=== PATIENT | female | born 1970 | race American Indian/Alaskan Native ===

== ENCOUNTER 2017-12-26 08:14 | Emergency (ER) | payer BC | END 2017-12-26 09:30 | disposition left against medical advice (07) | LOC: ED 08:14 | DX: R07.0 Pain in throat (principal); Z53.21 Procedure and treatment not carried out due to patient leaving prior to being seen by health care provider ==

== ENCOUNTER 2018-07-19 12:47 | Outpatient (CLI) | payer BC ==
--- NOTE | 2018-07-19 16:31 | Mammography Report ---
BILATERAL DIGITAL SCREENING MAMMOGRAM with CAD: 07/19/18 12:47:00 CLINICAL: Routine screening. COMPARISON:None available. FINDINGS: The breasts are heterogeneously dense, which may obscure small masses. No mass, architectural distortion or suspicious calcifications. IMPRESSION: No mammographic evidence of malignancy. BI-RADS CATEGORY: 1 - - Negative RECOMMENDATION: Routine mammographic screening in one year. COMMENT: Patient follow-up letters are generated by our [employer] application.
== END 2018-07-19 12:48 | disposition home or self-care (01) ==
LOC: MAMMO 12:47
PROVIDERS: ATTEND Obstetrics & Gynecology Gynecology
DX: Z12.31 Encounter for screening mammogram for malignant neoplasm of breast (principal); K21.9 Gastro-esophageal reflux disease without esophagitis
CPT/HCPCS: 77067

== ENCOUNTER 2019-07-09 07:59 | Inpatient (IN) | payer BC ==
[2019-07-09 08:28] LABS: Basophils % (Auto) 0.4 % (0.0-1.8); Eosinophils # (Auto) 0.1 K/mm3 (0.0-0.4); Eosinophils % (Auto) 1.1 % (0.0-4.3); Hematocrit 36.6 % (30.3-42.9); Lymphocytes # (Auto) 1.9 K/mm3 (1.2-5.4); Lymphocytes % (Auto) 33.8 % (13.4-35.0); Mean Corpuscular HGB Conc 33 % (30-34); Mean Corpuscular Volume 84 fl (79-97); Monocytes # (Auto) 0.5 K/mm3 (0.0-0.8); Monocytes % (Auto) 8.1 % (0.0-7.3); Platelet Count 243 K/mm3 (140-440); Red Blood Count 4.36 M/mm3 (3.65-5.03); Red Cell Distribution Width 16.8 % (13.2-15.2)
[2019-07-09 08:42] LABS: Alanine Aminotransferase 29 units/L (7-56); Albumin 3.9 g/dL (3.9-5); BUN/Creatinine Ratio 26; Blood Urea Nitrogen 13 mg/dL (7-17); Calcium 8.8 mg/dL (8.4-10.2); Hemolysis Index 4
[2019-07-09 08:57] LABS: Bilirubin,Urine NEG (Negative); Blood,Urine NEG (Negative); Color,Urine Yellow (Yellow); Mucus,Urine FEW /HPF; Protein,Urine <15 mg/dL mg/dL (Negative)
[2019-07-09] MEDS ORDERED: NACL 0.9% 1000 ML 1,000 ML IV ONE (09:28)
[2019-07-09] MEDS ORDERED: ZOFRAN IV ONE (09:28)
[2019-07-09] MEDS ORDERED: MORPHINE IV ONE ×2 (09:28→12:49)
[2019-07-09] MEDS ORDERED: ZOFRAN ONE (09:40)
[2019-07-09] MEDS ORDERED: MORPHINE ONE (09:40)
[2019-07-09] MEDS ORDERED: NACL 0.9% 1000 ML 1,000 ML ONE (09:41)
--- NOTE | 2019-07-09 09:46 | Emergency Department Report ---
ED Abdominal Pain HPI - General Chief Complaint: Abdominal Pain Stated Complaint: HEAD/(L) SIDE OF STOMACH PAIN Time Seen by Provider: 07/09/19 08:55 Source: patient Mode of arrival: Ambulatory Limitations: No Limitations - History of Present Illness Initial Comments: This is a 48-year-old female nontoxic, well nourished in appearance, no acute signs of distress presents to the ED with c/o of nausea and abdominal pain 2 day. Patient denies any vomiting. Patient describes abdominal pain as cramping and aching with level of 8/10 to left lower abdominal area. Patient denies chest pain, short of breath, fever, chills, headache, stiff neck, numbne ss or tingling. Patient denies any diarrhea or constipation. Patient denies any recent travels. Patient denies any allergies. HX of gastric bypass. MD Complaint: abdominal pain -: days(s) (1) Location: [facility] Radiation: none Migration to: no migration Severity: mild Severity scale (0 -10): 8 Quality: cramping, aching Consistency: constant Improves With: nothing Worsens With: nothing Associated Symptoms: nausea. denies: vomiting, diarrhea, fever, chills, constipation, dysuria, hematemesis, hematochezia, melena, hematuria, anorexia, syncope - Related Data Home Medications Medication Instructions Recorded Confirmed Last Taken Esomeprazole Magnesium [Nexium] 06/27/14 06/27/14 Unknown Previous Rx's Medication Instructions Recorded Last Taken Type Dicyclomine [Bentyl] 20 mg PO QID PRN #20 tablet 06/27/14 Unknown Rx Omeprazole [Prilosec] 40 mg PO BID #40 capsule. 06/27/14 Unknown Rx Cyclobenzaprine [Flexeril 10mg] 10 mg PO TID PRN #20 tablet 04/08/15 Unknown Rx HYDROcodone/ACETAMINOPHEN [Marlin 1 each PO TID #14 tablet 04/08/15 Unknown Rx 7.5-325 mg TAB] Ibuprofen [Motrin] 800 mg PO Q8H PRN #30 tablet 04/08/15 Unknown Rx traMADol [Ultram] 50 mg PO Q6HR PRN #10 tablet 11/04/16 Unknown Rx Allergies Allergy/AdvReac Type Severity Reaction Status Date / Time No Known Allergies Allergy Unverified 06/27/14 18:22 ED Review of Systems ROS: Stated complaint: HEAD/(L) SIDE OF STOMACH PAIN Other details as noted in HPI Constitutional: denies: chills, fever Eyes: denies: eye pain, eye discharge, vision change ENT: denies: ear pain, throat pain Respiratory: denies: cough, shortness of breath, wheezing Cardiovascular: denies: chest pain, palpitations Endocrine: no symptoms reported Gastrointestinal: abdominal pain, nausea. denies: vomiting, diarrhea Genitourinary: denies: urgency, dysuria, discharge Musculoskeletal: denies: back pain, joint swelling, arthralgia Skin: denies: rash, lesions Neurological: denies: headache, weakness, paresthesias Psychiatric: denies: anxiety, depression Hematological/Lymphatic: denies: easy bleeding, easy bruising ED Past Medical Hx - Past Medical History Previous Medical History?: Yes Hx GERD: Yes Additional medical history: reflux, indigestion - Surgical History Past Surgical History?: Yes Additional Surgical History: LAP BAND AND REMOVAL - Social History Smoking Status: Never Smoker Substance Use Type: None - Medications Home Medications: Home Medications Medication Instructions Recorded Confirmed Last Taken Type Dicyclomine [Bentyl] 20 mg PO QID PRN #20 tablet 06/27/14 Unknown Rx Esomeprazole Magnesium [Nexium] 06/27/14 06/27/14 Unknown History Omeprazole [Prilosec] 40 mg PO BID #40 capsule. 06/27/14 Unknown Rx Cyclobenzaprine [Flexeril 10mg] 10 mg PO TID PRN #20 tablet 04/08/15 Unknown Rx HYDROcodone/ACETAMINOPHEN [Marlin 1 each PO TID #14 tablet 04/08/15 Unknown Rx 7.5-325 mg TAB] Ibuprofen [Motrin] 800 mg PO Q8H PRN #30 tablet 04/08/15 Unknown Rx traMADol [Ultram] 50 mg PO Q6HR PRN #10 tablet 11/04/16 Unknown Rx ED Physical Exam - General Limitations: No Limitations General appearance: alert, in no apparent distress - Head Head exam: Present: atraumatic, normocephalic - Neck Neck exam: Present: normal inspection, full ROM - GI/Abdominal GI/Abdominal exam: Present: soft, tenderness (LLQ), normal bowel sounds. Absent: distended, guarding, rebound, rigid, diminished bowel sounds - Expanded GI/Abdominal Exam Expanded GI/Abdominal exam: Absent: psoas sign, Sim's sign, Rovsing's sign, tenderness at Mcburney's Point, ascites - Extremities Exam Extremities exam: Present: normal inspection, full ROM - Back Exam Back exam: Present: normal inspection, full ROM. Absent: tenderness, CVA tenderness (R), CVA tenderness (L), muscle spasm, paraspinal tenderness, vertebral tenderness, rash noted - Neurological Exam Neurological exam: Present: alert, oriented X3, normal gait - Psychiatric Psychiatric exam: Present: normal affect, normal mood - Skin Skin exam: Present: warm, dry, intact, normal color. Absent: rash ED Course Vital Signs 07/09/19 08:08 Temperature 99.0 F Pulse Rate 99 H Respiratory 19 Rate Blood Pressure 127/84 [Left] O2 Sat by Pulse 98 Oximetry - Reevaluation(s) Reevaluation #1: 07/09/19 09:46 Patient is speaking in full sentences with no signs of distress noted. - Consultations Consultation #1: 07/09/19 13:28 Patient has been consulted with Dr. Lucas (general surgeon) about patient history, physical exam, and labs/CT results and accepts patient to services. ED Medical Decision Making - Lab Data Result diagrams: 07/09/19 08:15 07/09/19 08:15 - Medical Decision Making This is a 48-year-old female that presents with small bowel intussusception. Patient is stable and was examined by me. A CT scan with contrast IV has been obtained and dictated by radiologist. Patient was consulted with Dr. Lucas and accepted by Dr. Levin. Patient placed on nothing by mouth. Dr. Engle was instructed about a small bowel barium swallow test be performed in the morning. At time of admission, the patient does not seem toxic or ill in appearance. No acute signs of distress noted. Patient agrees to admission treatment plan of care. No further questions noted by the patient. Critical care attestation.: If time is entered above; I have spent that time in minutes in the direct care of this critically ill patient, excluding procedure time. ED Disposition Clinical Impression: Small bowel intussusception Disposition: OP ADMIT IP TO THIS HOSP Is pt being admited?: Yes Condition: Stable
[2019-07-09 10:45] LABS: HCG Qualitative,Urine Negative (Negative)
--- NOTE | 2019-07-09 12:27 | Cat Scan Report ---
CT ABDOMEN AND PELVIS WITH CONTRAST HISTORY: Left abdominal pain and swelling for one day, constipation COMPARISON: None at this facility TECHNIQUE: Axial CT images were obtained through the abdomen and pelvis after 100 cc of Omnipaque 300 intravenously. Sagittal and coronal reformatted images. All CT scans at this location are performed using CT dose reduction for ALARA by means of automated exposure control. FINDINGS: CT ABDOMEN: Lung Bases: Clear. Liver: No significant abnormality. Biliary: No significant abnormality. Spleen: No significant abnormality. Unenlarged. Pancreas: No significant abnormality. Adrenals: No significant abnormality. Kidneys: No significant abnormality. Lymphatics: No lymphadenopathy. Vasculature: No significant abnormality. Bowel/Peritoneum: Surgical changes are noted in the proximal stomach and the mid small bowel in the l eft abdomen, please correlate with surgical history. There appears to be a focal small bowel intussus ception in the left abdomen which is best demonstrated on axial image 32, series 4. This does not obs truct. The remaining bowel loops are unremarkable. No evidence for free air, free fluid or pneumatosi s. Normal appendix. CT PELVIS: : The uterus is enlarged and heterogeneous containing multiple fibroids measuring up to 2-3 cm in d iameter. A 5.3 x 3.4 cm right adnexal cyst is identified which is presumably ovarian in origin. The l eft adnexa is unremarkable. There is trace pelvic ascites. Osseous Structures: No significant abnormality. Additional Findings: None IMPRESSION: Surgical changes in the stomach and mid small bowel as described. There is a focal small bowel intuss usception in the left abdomen which does not obstruct. Uterine fibroid disease. 5.3 x 3.4 cm right adnexal cyst. No acute inflammatory process is identified. Signer Name: Arvind Weaver Jr, MD Signed: 07/09/2019 12:23 PM Workstation Name: [id number]
[2019-07-09] MEDS ORDERED: DILAUDID IV PRN (20:37)
[2019-07-09] MEDS ORDERED: ZOFRAN IV PRN (21:34)
[2019-07-09] MEDS ORDERED: SODIUM CHLORIDE FLUSH SYRINGE 10 ML IV PRN (21:34)
--- NOTE | 2019-07-09 21:52 | Progress Note ---
Assessment and Plan Full consult dictated 48 y/o female c/o LLQ abd pain. Nausea but no vomiting past lap gastric band with subsequent conversion to lap gastric bypass Abd soft, non tender at present. +BS CT - possible LLQ small bowel intussusception? stable at present imp as above keep NPO for UGI with SBFT in am. will follow Initial Comments: This is a 48-year-old female nontoxic, well nourished in appearance, no acute signs of distress presents to the ED with c/o of nausea and abdominal pain 2 day. Patient denies any vomiting. Patient describes abdominal pain as cramping and aching with level of 8/10 to left lower abdominal area. Patient denies chest pain, short of breath, fever, chills, headache, stiff neck, numbness or tingling. Patient denies any diarrhea or constipation. Patient denies any recent travels. Patient denies any allergies. HX of gastric bypass. MD Complaint: abdominal pain -: days(s) (1) Location: [facility] Radiation: none Migration to: no migration Severity: mild Severity scale (0 -10): 8 Quality: cramping, aching Consistency: constant Improves With: nothing Worsens With: nothing Associated Symptoms: nausea. denies: vomiting, diarrhea, fever, chills, constipation, dysuria, hematemesis, hematochezia, melena, hematuria, anorexia, syncope Selected Entries 07/09/19 07/09/19 18:00 21:21 Temperature 98.1 F Pulse Rate [ 76 Left Brachial] Respiratory 18 Rate Blood Pressure 109/70 [Left] Laboratory Tests 07/09/19 07/09/19 08:15 08:15 WBC 5.7 Hgb 12.0 Hct 36.6 Total Bilirubin 0.60 AST 25 ALT 29 Alkaline Phosphatase 45 Objective Vital Signs - 12hr 07/09/19 07/09/19 07/09/19 16:14 16:40 18:00 Temperature 98.5 F 97.0 F L Pulse Rate 69 68 Pulse Rate [ 76 Left Brachial] Respiratory 16 20 20 Rate Blood Pressure 109/77 Blood Pressure 105/69 [Left] O2 Sat by Pulse 99 95 97 Oximetry 07/09/19 21:21 Temperature 98.1 F Pulse Rate 72 Pulse Rate [ Left Brachial] Respiratory 18 Rate Blood Pressure Blood Pressure 109/70 [Left] O2 Sat by Pulse 92 Oximetry - Labs 07/09/19 08:15 07/09/19 08:15 Diabetes panel 07/09/19 Range/Units 08:15 Sodium 138 (137-145) mmol/L Potassium 3.9 (3.6-5.0) mmol/L Chloride 107.2 H (98-107) mmol/L Carbon Dioxide 20 L (22-30) mmol/L BUN 13 (7-17) mg/dL Creatinine 0.5 L (0.7-1.2) mg/dL Glucose 92 (65-100) mg/dL Calcium 8.8 (8.4-10.2) mg/dL AST 25 (5-40) units/L ALT 29 (7-56) units/L Alkaline Phosphatase 45 (35-129) units/L Total Protein 6.7 (6.3-8.2) g/dL Albumin 3.9 (3.9-5) g/dL Calcium panel 07/09/19 Range/Units 08:15 Calcium 8.8 (8.4-10.2) mg/dL Albumin 3.9 (3.9-5) g/dL Pituitary panel 07/09/19 Range/Units 08:15 Sodium 138 (137-145) mmol/L Potassium 3.9 (3.6-5.0) mmol/L Chloride 107.2 H (98-107) mmol/L Carbon Dioxide 20 L (22-30) mmol/L BUN 13 (7-17) mg/dL Creatinine 0.5 L (0.7-1.2) mg/dL Glucose 92 (65-100) mg/dL Calcium 8.8 (8.4-10.2) mg/dL Adrenal panel 07/09/19 Range/Units 08:15 Sodium 138 (137-145) mmol/L Potassium 3.9 (3.6-5.0) mmol/L Chloride 107.2 H (98-107) mmol/L Carbon Dioxide 20 L (22-30) mmol/L BUN 13 (7-17) mg/dL Creatinine 0.5 L (0.7-1.2) mg/dL Glucose 92 (65-100) mg/dL Calcium 8.8 (8.4-10.2) mg/dL Total Bilirubin 0.60 (0.1-1.2) mg/dL AST 25 (5-40) units/L ALT 29 (7-56) units/L Alkaline Phosphatase 45 (35-129) units/L Total Protein 6.7 (6.3-8.2) g/dL Albumin 3.9 (3.9-5) g/dL
[2019-07-09] MEDS: PEPCID IV SCH (23:14)
[2019-07-09] MEDS: SODIUM CHLORIDE FLUSH SYRINGE 10 ML IV SCH (23:14)
[2019-07-09] MEDS: REGLAN IV PRN (23:28)
[2019-07-09] MEDS: MORPHINE IV PRN (23:35)
[2019-07-09] MEDS ORDERED: BENADRYL IV ONE (23:38)
[2019-07-10] MEDS: NACL 0.9% 1000 ML 1,000 ML IV SCH ×3 (01:20→18:00)
--- NOTE | 2019-07-10 02:29 | Event Note ---
Date: 07/09/19 See H/p in reports Intusussception SBO
--- NOTE | 2019-07-10 02:58 | History and Physical Report ---
CHIEF COMPLAINT: Abdominal pain for 2 days. HISTORY OF PRESENT ILLNESS: A 48-year-old female with no significant past medical history except for GERD, comes in for left lower quadrant and left upper quadrant pain for 2 days. The patient's pain is severe and crampy. Pain is about 8 on a scale of 1-10. The patient had similar episodes in the last 3-4 years. The patient attributes it to small bowel obstruction and intussusception. No vomiting. Did not pass any gas. The patient has a history of gastric bypass. Pain is sharp and intermittent, is 8 on a scale of 1-10. PAST MEDICAL HISTORY: Significant for GERD and small bowel obstruction and intussusception. PAST SURGICAL HISTORY: Lap band removal. SOCIAL HISTORY: Does not smoke. FAMILY HISTORY: Hypertension. CURRENT MEDICATIONS: Prilosec 40 mg twice a day. Tramadol 50 mg q. 6 p.r.n. in the past. REVIEW OF SYSTEMS: Significant for left lower quadrant and left upper quadrant pain, sharp in nature, 8 on a scale of 1-10, intermittent in nature. No diarrhea, no vomiting. PHYSICAL EXAMINATION: GENERAL: Middle-aged female, cooperative during examination, the patient in distress secondary to pain. VITAL SIGNS: Temperature is 98.5, pulse is 69, respirations are 16, blood pressure 109/77, O2 sats are 99%. HEENT: Unremarkable. Pupils equal and reactive. NECK: Supple, no lymphadenopathy, no thyromegaly. LUNGS: Clear to auscultation and percussion. Good air entry. ABDOMEN: Soft, tender in the left lower quadrant and left upper quadrant. No guarding. No rigidity. Bowel sounds are decreased. Hernial orifices are normal. EXTREMITIES: Good pedal pulses. No pedal edema. CENTRAL NERVOUS SYSTEM: Alert and oriented x 4. Nonfocal exam. SKIN: Normal. LABORATORY DATA: White count is 5700, H and H are 12 and 36.6, platelet count is 243,000. Electrolytes are normal. Bicarbonate is slightly low, 20. Urine is normal. Abdominal CAT scan shows surgical changes in the stomach and mid small bowel. Small bowel intussusception in the left abdomen, which does not obstruct. Uterine fibroids present. Right adnexal cyst. ASSESSMENT AND PLAN: 1. Acute abdominal pain secondary to intussusception, conservative management at present. Small bowel follow through barium series in the morning to reveal intussusception. 2. Intussusception, small bowel series in the morning with barium for relief of intussusception. If not, direct surgical intervention. Surgery consulted. 3. Gastroesophageal reflux disease. Continue on Prilosec. 4. Deep venous thrombosis prophylaxis, Lovenox 40 mg subcutaneous daily. JOB# [id number] VSM/NTS
[2019-07-10] MEDS: MORPHINE IV PRN ×5 (04:15→21:13)
[2019-07-10 05:47] LABS: Basophils % (Auto) 0.3 % (0.0-1.8); Eosinophils # (Auto) 0.1 K/mm3 (0.0-0.4); Eosinophils % (Auto) 1.8 % (0.0-4.3); Hematocrit 31.5 % (30.3-42.9); Hemoglobin 10.3 gm/dl (10.1-14.3); Lymphocytes # (Auto) 1.9 K/mm3 (1.2-5.4); Lymphocytes % (Auto) 52.4 % (13.4-35.0); Mean Corpuscular HGB Conc 33 % (30-34); Mean Corpuscular Volume 85 fl (79-97); Monocytes # (Auto) 0.3 K/mm3 (0.0-0.8); Platelet Count 204 K/mm3 (140-440); Red Blood Count 3.73 M/mm3 (3.65-5.03)
[2019-07-10 06:15] LABS: Alanine Aminotransferase 21 units/L (7-56); Albumin 3.1 g/dL (3.9-5); BUN/Creatinine Ratio 20; Blood Urea Nitrogen 8 mg/dL (7-17); Calcium 7.8 mg/dL (8.4-10.2); Hemolysis Index 7
--- NOTE | 2019-07-10 11:20 | Fluoroscopy Report ---
SMALL BOWEL FOLLOW-THROUGH HISTORY: Intussusception, abdominal pain. TECHNIQUE: Single contrast barium technique utilized to evaluate the small bowel. FINDINGS: Small bowel transit time was 30 minutes which is normal. No fold thickening, mass, mass e ffect, stenosis, or obstruction. The terminal ileum is normal in appearance. No intussusception was identified as noted on recent CT abdomen and pelvis. IMPRESSION: Unremarkable exam. FLUOROSCOPIC TIME: 0.3 minutes NUMBER OF FLUOROSCOPIC IMAGES: 4 Signer Name: Arvind Weaver Jr, MD Signed: 07/10/2019 11:16 AM Workstation Name: [id number]
[2019-07-10] MEDS: SODIUM CHLORIDE FLUSH SYRINGE 10 ML IV SCH ×2 (11:57→21:18)
[2019-07-10] MEDS: PEPCID IV SCH ×2 (11:57→21:12)
--- NOTE | 2019-07-10 12:53 | Progress Note ---
Assessment and Plan Pt status quo. still c/o non specific LLQ abd pain. Abd soft at present SBFT - unremarkable persistent, non specific lower abd pain. Pt states she's had this symptomatology ever since her gastric bypass surg.. rec consultation with Dr. Ugalde bariatric surgeon consider beginning trial of po cl liq if cleared by Dr. Ugalde Selected Entries 07/10/19 08:41 Temperature 98 F Pulse Rate 66 Respiratory 18 Rate Blood Pressure 111/73 [Left] Laboratory Tests 07/09/19 07/10/19 07/10/19 08:15 05:12 05:12 WBC 3.6 L Hgb 12.0 10.3 Hct 36.6 31.5 Potassium 3.5 L Objective Vital Signs - 12hr 07/10/19 07/10/19 07/10/19 02:23 04:02 08:41 Temperature 98.0 F 98 F Pulse Rate 67 66 Respiratory 20 18 18 Rate Blood Pressure 96/49 Blood Pressure 111/73 [Left] O2 Sat by Pulse 98 97 98 Oximetry - Labs 07/10/19 05:12 07/10/19 05:12 Diabetes panel 07/10/19 07/10/19 Range/Units 05:12 05:12 Sodium 142 (137-145) mmol/L Potassium 3.5 L (3.6-5.0) mmol/L Chloride 109.4 H (98-107) mmol/L Carbon Dioxide 22 (22-30) mmol/L BUN 8 (7-17) mg/dL Creatinine 0.4 L (0.7-1.2) mg/dL Glucose 82 (65-100) mg/dL Hemoglobin A1c 5.3 (4-6) % Calcium 7.8 L (8.4-10.2) mg/dL AST 19 (5-40) units/L ALT 21 (7-56) units/L Alkaline Phosphatase 38 (35-129) units/L Total Protein 5.8 L (6.3-8.2) g/dL Albumin 3.1 L (3.9-5) g/dL Calcium panel 07/10/19 Range/Units 05:12 Calcium 7.8 L (8.4-10.2) mg/dL Albumin 3.1 L (3.9-5) g/dL Pituitary panel 07/10/19 Range/Units 05:12 Sodium 142 (137-145) mmol/L Potassium 3.5 L (3.6-5.0) mmol/L Chloride 109.4 H (98-107) mmol/L Carbon Dioxide 22 (22-30) mmol/L BUN 8 (7-17) mg/dL Creatinine 0.4 L (0.7-1.2) mg/dL Glucose 82 (65-100) mg/dL Calcium 7.8 L (8.4-10.2) mg/dL Adrenal panel 07/10/19 Range/Units 05:12 Sodium 142 (137-145) mmol/L Potassium 3.5 L (3.6-5.0) mmol/L Chloride 109.4 H (98-107) mmol/L Carbon Dioxide 22 (22-30) mmol/L BUN 8 (7-17) mg/dL Creatinine 0.4 L (0.7-1.2) mg/dL Glucose 82 (65-100) mg/dL Calcium 7.8 L (8.4-10.2) mg/dL Total Bilirubin 0.50 (0.1-1.2) mg/dL AST 19 (5-40) units/L ALT 21 (7-56) units/L Alkaline Phosphatase 38 (35-129) units/L Total Protein 5.8 L (6.3-8.2) g/dL Albumin 3.1 L (3.9-5) g/dL
--- NOTE | 2019-07-10 14:05 | Consultation ---
History of Present Illness Consult date: 07/10/19 Reason for consult: abdominal pain Chief complaint: Hx of gastric bypass with intussusception seen on CT scan. - History of present illness History of present illness: 48 year old female with a hx of band converted to gastric bypass 2009. She says she has been having chronic abdominal pain on the left side since the surgery off and on. She was seen at an OSH and was told she had intussusception on CT scan. She was told to get a second opinion and followed up with the the bariatric practice that performed her surgery. The had planned to schedule her for surgical exploration. She denies n/v, she has bowel movements, but says she is tired of having the pain. She had a CT scan overnight that also showed a non- obstructing intussusception and a small bowel follow through that showed no obstruction and was otherwise normal. Past History Past Surgical History: Other (gastric band, gastric bypass) Medications and Allergies Allergies Allergy/AdvReac Type Severity Reaction Status Date / Time No Known Allergies Allergy Unverified 06/27/14 18:22 Home Medications Medication Instructions Recorded Confirmed Last Taken Type Dicyclomine [Bentyl] 20 mg PO QID PRN #20 tablet 06/27/14 07/09/19 2 Years Ago Rx ~07/09/17 Esomeprazole Magnesium [Nexium] 06/27/14 06/27/14 1 Year Ago History ~07/09/18 Omeprazole [Prilosec] 40 mg PO BID #40 capsule. 06/27/14 07/09/19 Unknown Rx Cyclobenzaprine [Flexeril 10mg] 10 mg PO TID PRN #20 tablet 04/08/15 07/09/19 2 Years Ago Rx ~07/09/17 HYDROcodone/ACETAMINOPHEN [Center 1 each PO TID #14 tablet 04/08/15 07/09/19 05/27/19 Rx 7.5-325 mg TAB] Ibuprofen [Motrin] 800 mg PO Q8H PRN #30 tablet 04/08/15 07/09/19 Unknown Rx traMADol [Ultram] 50 mg PO Q6HR PRN #10 tablet 11/04/16 07/09/19 Unknown Rx Active Meds: Active Medications Acetaminophen (Tylenol) 650 mg PO Q4H PRN PRN Reason: Pain MILD(1-3)/Fever >100.5/MAYBERRY Famotidine (Pepcid) 20 mg IV BID [facility] Last Admin: 07/10/19 11:57 Dose: 20 mg Documented by: Sodium Chloride (Nacl 0.9% 1000 Ml) 1,000 mls @ 125 mls/hr IV DIRECT [facility] Last Admin: 07/10/19 06:16 Dose: 125 mls/hr Documented by: Metoclopramide HCl (Reglan) 10 mg IV Q6H PRN PRN Reason: Nausea And Vomiting Last Admin: 07/09/19 23:28 Dose: 10 mg Documented by: Morphine Sulfate (Morphine) 2 mg IV Q3H PRN PRN Reason: Pain, Moderate (4-6) Last Admin: 07/10/19 11:57 Dose: 2 mg Documented by: Ondansetron HCl (Zofran) 4 mg IV Q8H PRN PRN Reason: Nausea And Vomiting Sodium Chloride (Sodium Chloride Flush Syringe 10 Ml) 10 ml IV BID [facility] Last Admin: 07/10/19 11:57 Dose: 10 ml Documented by: Sodium Chloride (Sodium Chloride Flush Syringe 10 Ml) 10 ml IV PRN PRN PRN Reason: LINE FLUSH Review of Systems - Constitutional no weight loss - Cardiovascular no chest pain - Respiratory no shortness of breath - Gastrointestinal abdominal pain Exam Vital Signs Temp Pulse Resp BP Pulse Ox 99.0 F 99 H 19 127/84 98 07/09/19 08:08 07/09/19 08:08 07/09/19 08:08 07/09/19 08:08 07/09/19 08:08 - General physical appearance Positive: well developed, well nourished, no distress - Eyes Positive: PERRL - Respiratory Positive: normal expansion, normal respiratory effort - Extremities Extremities: no ischemia - Abdomen Abdomen: Present: soft, other (obese, mild tenderness to deep palpation on the left side) Results - Labs 07/10/19 05:12 07/10/19 05:12 Abnormal lab results 07/10/19 07/10/19 Range/Units 05:12 05:12 WBC 3.6 L (4.5-11.0) K/mm3 RDW 17.0 H (13.2-15.2) % Lymph % (Auto) 52.4 H (13.4-35.0) % Mcdonough % (Auto) 8.0 H (0.0-7.3) % Seg Neutrophils % 37.5 L (40.0-70.0) % Seg Neutrophils # 1.4 L (1.8-7.7) K/mm3 Potassium 3.5 L (3.6-5.0) mmol/L Chloride 109.4 H (98-107) mmol/L Creatinine 0.4 L (0.7-1.2) mg/dL Calcium 7.8 L (8.4-10.2) mg/dL Total Protein 5.8 L (6.3-8.2) g/dL Albumin 3.1 L (3.9-5) g/dL Diabetes panel 07/10/19 07/10/19 Range/Units 05:12 05:12 Sodium 142 (137-145) mmol/L Potassium 3.5 L (3.6-5.0) mmol/L Chloride 109.4 H (98-107) mmol/L Carbon Dioxide 22 (22-30) mmol/L BUN 8 (7-17) mg/dL Creatinine 0.4 L (0.7-1.2) mg/dL Glucose 82 (65-100) mg/dL Hemoglobin A1c 5.3 (4-6) % Calcium 7.8 L (8.4-10.2) mg/dL AST 19 (5-40) units/L ALT 21 (7-56) units/L Alkaline Phosphatase 38 (35-129) units/L Total Protein 5.8 L (6.3-8.2) g/dL Albumin 3.1 L (3.9-5) g/dL Calcium panel 07/10/19 Range/Units 05:12 Calcium 7.8 L (8.4-10.2) mg/dL Albumin 3.1 L (3.9-5) g/dL Pituitary panel 07/10/19 Range/Units 05:12 Sodium 142 (137-145) mmol/L Potassium 3.5 L (3.6-5.0) mmol/L Chloride 109.4 H (98-107) mmol/L Carbon Dioxide 22 (22-30) mmol/L BUN 8 (7-17) mg/dL Creatinine 0.4 L (0.7-1.2) mg/dL Glucose 82 (65-100) mg/dL Calcium 7.8 L (8.4-10.2) mg/dL Adrenal panel 07/10/19 Range/Units 05:12 Sodium 142 (137-145) mmol/L Potassium 3.5 L (3.6-5.0) mmol/L Chloride 109.4 H (98-107) mmol/L Carbon Dioxide 22 (22-30) mmol/L BUN 8 (7-17) mg/dL Creatinine 0.4 L (0.7-1.2) mg/dL Glucose 82 (65-100) mg/dL Calcium 7.8 L (8.4-10.2) mg/dL Total Bilirubin 0.50 (0.1-1.2) mg/dL AST 19 (5-40) units/L ALT 21 (7-56) units/L Alkaline Phosphatase 38 (35-129) units/L Total Protein 5.8 L (6.3-8.2) g/dL Albumin 3.1 L (3.9-5) g/dL - Imaging Abdominal x-ray: report reviewed, image reviewed (no obstructing intussusception) CT scan - abdomen: report reviewed, image reviewed CT scan - pelvis: report reviewed, image reviewed Assessment and Plan chronic abdominal pain after gastric bypass. stable, afebrile. chronic intussusception as a cause of pain a possibility scheduled for dx lap on Monday07/12/19. Can have clear liquids through tomorrow mid night. discussed with patient that if segment of bowel is not actively telescoped at time of exploration may have nothing to repair at that time and intussusception can occur again. Will also look for possible internal hernia at that time.
[2019-07-10] MEDS: TYLENOL PO PRN (14:48)
--- NOTE | 2019-07-10 16:43 | Progress Note ---
Assessment and Plan Assessment and plan: Abdominal pain due to intussusception - Dr. Ugalde evaluated and will do surgery on monday History of gastric bypass GERD - Continue Prilosec DVT prophylaxis - On Lovenox Disposition - Continue inpatient care History Interval history: Patient was seen and evaluated this morning, patient did complaining some abdominal pain. Hospitalist Physical - Physical exam Narrative exam: Not in cardiopulmonary distress. The patient appeared well nourished and normally developed. Vital signs as documented. Head exam is unremarkable. No scleral icterus . Neck is without jugular venous distension, thyromegaly, or carotid bruits. Lungs are clear to auscultation. Cardiac exam reveals regular rate and Rhythm. Abdominal exam reveals normal bowel sounds, no masses, no organomegaly and no aortic enlargement. Extremities are nonedematous and both femoral and pedal pulses are normal. 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 No focal weakness. - Constitutional Vitals: Temp Pulse Resp BP Pulse Ox 98 F 66 18 111/73 98 07/10/19 08:41 07/10/19 08:41 07/10/19 08:41 07/10/19 08:41 07/10/19 08:41 Results - Labs CBC & Chem 7: 07/10/19 05:12 07/10/19 05:12 Labs: Laboratory Last Values WBC 3.6 K/mm3 (4.5-11.0) L 07/10/19 05:12 RBC 3.73 M/mm3 (3.65-5.03) 07/10/19 05:12 Hgb 10.3 gm/dl (10.1-14.3) 07/10/19 05:12 Hct 31.5 % (30.3-42.9) 07/10/19 05:12 MCV 85 fl (79-97) 07/10/19 05:12 MCH 28 pg (28-32) 07/10/19 05:12 MCHC 33 % (30-34) 07/10/19 05:12 RDW 17.0 % (13.2-15.2) H 07/10/19 05:12 Plt Count 204 K/mm3 (140-440) 07/10/19 05:12 Lymph % (Auto) 52.4 % (13.4-35.0) H 07/10/19 05:12 [place] % (Auto) 8.0 % (0.0-7.3) H 07/10/19 05:12 Eos % (Auto) 1.8 % (0.0-4.3) 07/10/19 05:12 Baso % (Auto) 0.3 % (0.0-1.8) 07/10/19 05:12 Lymph # 1.9 K/mm3 (1.2-5.4) 07/10/19 05:12 [place] # 0.3 K/mm3 (0.0-0.8) 07/10/19 05:12 Eos # 0.1 K/mm3 (0.0-0.4) 07/10/19 05:12 Baso # 0.0 K/mm3 (0.0-0.1) 07/10/19 05:12 Seg Neutrophils % 37.5 % (40.0-70.0) L 07/10/19 05:12 Seg Neutrophils # 1.4 K/mm3 (1.8-7.7) L 07/10/19 05:12 Sodium 142 mmol/L (137-145) 07/10/19 05:12 Potassium 3.5 mmol/L (3.6-5.0) L 07/10/19 05:12 Chloride 109.4 mmol/L (98-107) H 07/10/19 05:12 Carbon Dioxide 22 mmol/L (22-30) 07/10/19 05:12 14 mmol/L 07/10/19 05:12 BUN 8 mg/dL (7-17) 07/10/19 05:12 0.4 mg/dL (0.7-1.2) L 07/10/19 05:12 Estimated GFR > 60 ml/min 07/10/19 05:12 20 % 07/10/19 05:12 Glucose 82 mg/dL (65-100) 07/10/19 05:12 5.3 % (4-6) 07/10/19 05:12 Calcium 7.8 mg/dL (8.4-10.2) L 07/10/19 05:12 0.50 mg/dL (0.1-1.2) 07/10/19 05:12 AST 19 units/L (5-40) 07/10/19 05:12 ALT 21 units/L (7-56) 07/10/19 05:12 38 units/L (35-129) 07/10/19 05:12 5.8 g/dL (6.3-8.2) L 07/10/19 05:12 3.1 g/dL (3.9-5) L 07/10/19 05:12 1.1 % 07/10/19 05:12 Yellow (Yellow) 07/09/19 08:35 Clear (Clear) 07/09/19 08:35 6.0 (5.0-7.0) 07/09/19 08:35 Ur Specific [place] 1.017 (1.003-1.030) 07/09/19 08:35 <15 mg/dl mg/dL (Negative) 07/09/19 08:35 Neg mg/dL (Negative) 07/09/19 08:35 Neg mg/dL (Negative) 07/09/19 08:35 Neg (Negative) 07/09/19 08:35 Neg (Negative) 07/09/19 08:35 Neg (Negative) 07/09/19 08:35 2.0 mg/dL (<2.0) 07/09/19 08:35 Ur Leukocyte Esterase Tr (Negative) 07/09/19 08:35 1.0 /HPF (0.0-6.0) 07/09/19 08:35 3.0 /HPF (0.0-6.0) 07/09/19 08:35 U Epithel Cells (Auto) 1.0 /HPF (0-13.0) 07/09/19 08:35 Few /HPF 07/09/19 08:35 Urine HCG, Qual Negative (Negative) 07/09/19 10:19 Active Medications - Current Medications Current Medications: Generic Name Dose Route Start Last Admin Trade Name Freq PRN Reason Stop Dose Admin Acetaminophen 650 mg 07/09/19 21:34 07/10/19 14:48 Tylenol PO 650 mg Q4H PRN Administration Pain MILD(1-3)/Fever >100.5/MAYBERRY Famotidine 20 mg 07/09/19 22:00 07/10/19 11:57 Pepcid IV 20 mg BID MINDY Administration Sodium Chloride 1,000 mls @ 125 mls/hr 07/09/19 22:00 07/10/19 06:16 Nacl 0.9% 1000 Ml IV 125 mls/hr DIRECT MINDY Administration Metoclopramide HCl 10 mg 07/09/19 21:34 07/09/19 23:28 Reglan IV 10 mg Q6H PRN Administration Nausea And Vomiting Morphine Sulfate 2 mg 07/09/19 23:14 07/10/19 11:57 Morphine IV 2 mg Q3H PRN Administration Pain, Moderate (4-6) Ondansetron HCl 4 mg 07/09/19 21:34 Zofran IV Q8H PRN Nausea And Vomiting Sodium Chloride 10 ml 07/09/19 22:00 07/10/19 11:57 Sodium Chloride Flush Syringe 10 Ml IV 10 ml BID MINDY Administration Sodium Chloride 10 ml 07/09/19 21:34 Sodium Chloride Flush Syringe 10 Ml IV PRN PRN LINE FLUSH
--- NOTE | 2019-07-10 18:30 | Consultation ---
REASON FOR CONSULTATION: Rule out intussusception. HISTORY OF PRESENT ILLNESS: The patient is a 48-year-old female who was admitted through the Emergency Room today with a chief complaint of left lower quadrant abdominal pain. She states she has had some nausea, but no vomiting. It is noted that the patient states she was seen in [facility] approximately 3 weeks ago with similar symptoms, although was never admitted. Apparently, she improved on her own, but over the last day or so her left lower quadrant abdominal pain has recurred. PAST MEDICAL HISTORY: Negative. PAST SURGICAL HISTORY: Status post laparoscopic gastric banding and then subsequent conversion to laparoscopic gastric bypass. Also, laparoscopic ovarian cystectomy. ALLERGIES: No known allergies. MEDICATIONS: Include stool softener, multivitamins and Ambien for sleep. FAMILY HISTORY: Negative. SOCIAL HISTORY: Drinks occasional wine. Denies any smoking. PHYSICAL EXAMINATION: GENERAL: At this time reveals the patient to be awake, alert, cooperative. Mild discomfort, but no acute distress. VITAL SIGNS: Show her to be afebrile with a temperature of 98, blood pressure is 109/70, pulse is 72, respirations of 18. ABDOMEN: Examination of the abdomen reveals it to be soft. There is very mild left lower quadrant tenderness noted at this time, but no guarding or rebound. Bowel sounds are present. There are no signs of any abdominal distention. LABORATORY DATA: Lab work at present includes a CBC, which shows a white count of 5.7, H and H is 12 and 36.6. Electrolytes are all within normal limits. Glucose is normal at 92. LFTs are all normal including a total bilirubin of 0.6, AST is 25, ALT is 29, alkaline phosphatase 45. A CT scan of the abdomen has been performed, which reveals possible small bowel intussusception in the area of the left abdomen. There are no signs of any proximal bowel distention or obstruction. No evidence of any free air or free fluid. Appendix is normal. IMPRESSION: 1. At this time is that of a 48-year-old female status post previous gastric lap band and subsequent gastric bypass. 2. Rule out possible small bowel intussusception. The patient is clinically stable. Her abdomen is soft and currently nontender. There is no evidence of any obstructive signs. Recommendation at this time is to keep the patient n.p.o. We will order upper GI with small bowel follow through with p.o. barium in the morning to confirm if there is indeed an intussusception in the area. Many times a barium itself is not only diagnostic, but therapeutic. I will follow with you. JOB# [id number] FP/NTS
[2019-07-10] MEDS: RESTORIL PO PRN (23:28)
[2019-07-11] MEDS: TYLENOL PO PRN ×2 (02:24→06:51)
[2019-07-11] MEDS: NACL 0.9% 1000 ML 1,000 ML IV SCH ×3 (02:24→20:18)
[2019-07-11] MEDS: REGLAN IV PRN (02:25)
[2019-07-11] MEDS: MORPHINE IV PRN ×4 (02:42→20:06)
[2019-07-11 06:46] LABS: Basophils % (Auto) 0.4 % (0.0-1.8); Eosinophils # (Auto) 0.1 K/mm3 (0.0-0.4); Eosinophils % (Auto) 1.7 % (0.0-4.3); Hematocrit 32.1 % (30.3-42.9); Hemoglobin 10.5 gm/dl (10.1-14.3); Lymphocytes # (Auto) 1.7 K/mm3 (1.2-5.4); Lymphocytes % (Auto) 45.2 % (13.4-35.0); Mean Corpuscular HGB Conc 33 % (30-34); Mean Corpuscular Volume 84 fl (79-97); Monocytes # (Auto) 0.4 K/mm3 (0.0-0.8); Monocytes % (Auto) 9.6 % (0.0-7.3); Platelet Count 205 K/mm3 (140-440); Red Blood Count 3.81 M/mm3 (3.65-5.03); Red Cell Distribution Width 16.8 % (13.2-15.2)
[2019-07-11] MEDS ORDERED: ZOFRAN IV PRN (07:42)
--- NOTE | 2019-07-11 08:31 | Progress Note ---
Assessment and Plan chronic abdominal pain s/p gastric bypass with possible non obstructing intussusception. stable, afebrile scheduled for dx lap tomorrow Subjective Date of service: 07/11/19 Patient Reports: Positive: no new complaints (tolerated liquid diet, passing flatus) Objective Vital Signs - 12hr 07/10/19 07/11/19 07/11/19 20:46 01:17 05:18 Temperature 98.1 F 97.9 F 98.2 F Pulse Rate 72 67 74 Respiratory 18 17 17 Rate Blood Pressure 116/72 116/74 Blood Pressure 114/73 [Left] O2 Sat by Pulse 97 96 96 Oximetry 07/11/19 08:13 Temperature 98.0 F Pulse Rate 68 Respiratory 18 Rate Blood Pressure 129/73 Blood Pressure [Left] O2 Sat by Pulse 96 Oximetry - General physical appearance well developed, well nourished, no distress - Abdomen soft, not rebound, not guarding, other (obese, tender to deep palpation on the left side) - Labs 07/11/19 05:45 07/10/19 05:12
[2019-07-11] MEDS: SODIUM CHLORIDE FLUSH SYRINGE 10 ML IV SCH (10:32)
[2019-07-11] MEDS: PEPCID IV SCH ×2 (10:32→21:22)
--- NOTE | 2019-07-11 14:03 | Progress Note ---
Assessment and Plan Assessment and plan: Abdominal pain due to intussusception - Dr. Ugalde evaluated and will do surgery on monday History of gastric bypass GERD - Continue Prilosec DVT prophylaxis - On Lovenox Disposition - Continue inpatient care History Interval history: Patient was seen and evaluated this morning, patient did complaining abdominal cramp. Hospitalist Physical - Physical exam Narrative exam: Not in cardiopulmonary distress. The patient appeared well nourished and normally developed. Vital signs as documented. Head exam is unremarkable. No scleral icterus . Neck is without jugular venous distension, thyromegaly, or carotid bruits. Lungs are clear to auscultation. Cardiac exam reveals regular rate and Rhythm. Abdominal exam reveals normal bowel sounds, no masses, no organomegaly and no aortic enlargement. Extremities are nonedematous and both femoral and pedal pulses are normal. 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 No focal weakness. - Constitutional Vitals: Temp Pulse Resp BP Pulse Ox 98.1 F 67 18 112/67 98 07/11/19 11:07 07/11/19 11:07 07/11/19 11:07 07/11/19 11:07 07/11/19 11:07 Results - Labs CBC & Chem 7: 07/11/19 05:45 07/10/19 05:12 Labs: Laboratory Last Values WBC 3.8 K/mm3 (4.5-11.0) L 07/11/19 05:45 RBC 3.81 M/mm3 (3.65-5.03) 07/11/19 05:45 Hgb 10.5 gm/dl (10.1-14.3) 07/11/19 05:45 Hct 32.1 % (30.3-42.9) 07/11/19 05:45 MCV 84 fl (79-97) 07/11/19 05:45 MCH 28 pg (28-32) 07/11/19 05:45 MCHC 33 % (30-34) 07/11/19 05:45 RDW 16.8 % (13.2-15.2) H 07/11/19 05:45 Plt Count 205 K/mm3 (140-440) 07/11/19 05:45 Lymph % (Auto) 45.2 % (13.4-35.0) H 07/11/19 05:45 [place] % (Auto) 9.6 % (0.0-7.3) H 07/11/19 05:45 Eos % (Auto) 1.7 % (0.0-4.3) 07/11/19 05:45 Baso % (Auto) 0.4 % (0.0-1.8) 07/11/19 05:45 Lymph # 1.7 K/mm3 (1.2-5.4) 07/11/19 05:45 [place] # 0.4 K/mm3 (0.0-0.8) 07/11/19 05:45 Eos # 0.1 K/mm3 (0.0-0.4) 07/11/19 05:45 Baso # 0.0 K/mm3 (0.0-0.1) 07/11/19 05:45 Seg Neutrophils % 43.1 % (40.0-70.0) 07/11/19 05:45 Seg Neutrophils # 1.6 K/mm3 (1.8-7.7) L 07/11/19 05:45 Sodium 142 mmol/L (137-145) 07/10/19 05:12 Potassium 3.5 mmol/L (3.6-5.0) L 07/10/19 05:12 Chloride 109.4 mmol/L (98-107) H 07/10/19 05:12 Carbon Dioxide 22 mmol/L (22-30) 07/10/19 05:12 14 mmol/L 07/10/19 05:12 BUN 8 mg/dL (7-17) 07/10/19 05:12 0.4 mg/dL (0.7-1.2) L 07/10/19 05:12 Estimated GFR > 60 ml/min 07/10/19 05:12 20 % 07/10/19 05:12 Glucose 82 mg/dL (65-100) 07/10/19 05:12 5.3 % (4-6) 07/10/19 05:12 Calcium 7.8 mg/dL (8.4-10.2) L 07/10/19 05:12 0.50 mg/dL (0.1-1.2) 07/10/19 05:12 AST 19 units/L (5-40) 07/10/19 05:12 ALT 21 units/L (7-56) 07/10/19 05:12 38 units/L (35-129) 07/10/19 05:12 5.8 g/dL (6.3-8.2) L 07/10/19 05:12 3.1 g/dL (3.9-5) L 07/10/19 05:12 1.1 % 07/10/19 05:12 Yellow (Yellow) 07/09/19 08:35 Clear (Clear) 07/09/19 08:35 6.0 (5.0-7.0) 07/09/19 08:35 Ur Specific [place] 1.017 (1.003-1.030) 07/09/19 08:35 <15 mg/dl mg/dL (Negative) 07/09/19 08:35 Neg mg/dL (Negative) 07/09/19 08:35 Neg mg/dL (Negative) 07/09/19 08:35 Neg (Negative) 07/09/19 08:35 Neg (Negative) 07/09/19 08:35 Neg (Negative) 07/09/19 08:35 2.0 mg/dL (<2.0) 07/09/19 08:35 Ur Leukocyte Esterase Tr (Negative) 07/09/19 08:35 1.0 /HPF (0.0-6.0) 07/09/19 08:35 3.0 /HPF (0.0-6.0) 07/09/19 08:35 U Epithel Cells (Auto) 1.0 /HPF (0-13.0) 07/09/19 08:35 Few /HPF 07/09/19 08:35 Urine HCG, Qual Negative (Negative) 07/09/19 10:19 Active Medications - Current Medications Current Medications: Generic Name Dose Route Start Last Admin Trade Name Freq PRN Reason Stop Dose Admin Acetaminophen 650 mg 07/09/19 21:34 07/11/19 06:51 Tylenol PO 650 mg Q4H PRN Administration Pain MILD(1-3)/Fever >100.5/MAYBERRY Famotidine 20 mg 07/09/19 22:00 07/11/19 10:32 Pepcid IV 20 mg BID MINDY Administration Sodium Chloride 1,000 mls @ 125 mls/hr 07/09/19 22:00 07/11/19 10:32 Nacl 0.9% 1000 Ml IV 125 mls/hr DIRECT MINDY Administration Morphine Sulfate 2 mg 07/09/19 23:14 07/11/19 08:37 Morphine IV 2 mg Q3H PRN Administration Pain, Moderate (4-6) Ondansetron HCl 4 mg 07/11/19 07:42 Zofran IV Q4H PRN Nausea And Vomiting Sodium Chloride 10 ml 07/09/19 22:00 07/11/19 10:32 Sodium Chloride Flush Syringe 10 Ml IV 10 ml BID MINDY Administration Sodium Chloride 10 ml 07/09/19 21:34 Sodium Chloride Flush Syringe 10 Ml IV PRN PRN LINE FLUSH Temazepam 15 mg 07/10/19 22:40 07/10/19 23:28 Restoril PO 15 mg QHS PRN Administration Sleep
[2019-07-11] MEDS: RESTORIL PO PRN (21:28)
[2019-07-12] MEDS: SODIUM CHLORIDE FLUSH SYRINGE 10 ML IV SCH (05:05)
[2019-07-12] MEDS: MORPHINE IV PRN ×2 (05:47→13:44)
[2019-07-12] MEDS: NACL 0.9% 1000 ML 1,000 ML IV SCH (05:47)
[2019-07-12] MEDS ORDERED: DILAUDID IV PRN (08:06)
--- NOTE | 2019-07-12 08:06 | Anesthesia Consultation ---
Anesthesia Consult and Med Hx Date of service: 07/12/19 - Airway Anesthetic Teeth Evaluation: Partials ROM Head & Neck: Adequate Mental/Hyoid Distance: Adequate Mallampati Class: Class II Intubation Access Assessment: Good - Pulmonary Exam CTA: Yes - Cardiac Exam Cardiac Exam: RRR - Pre-Operative Health Status ASA Pre-Surgery Classification: ASA2 Proposed Anesthetic Plan: General - Pulmonary Hx Asthma: No COPD: No Hx Pneumonia: No - Central Nervous System Hx Psychiatric Problems: No - Gastrointestinal Hx Gastroesophageal Reflux Disease: Yes - Endocrine Hx End Stage Renal Disease: No - Other Systems Hx Cancer: No
--- NOTE | 2019-07-12 08:06 | Anesthesia Day of Surgery ---
Anesthesia Day of Surgery - Day of Surgery Patient Examined: Yes Patient H&P Reviewed: Yes Patient is NPO: Yes
[2019-07-12] MEDS ORDERED: LACTATED RINGERS 1,000 ML ONE ×2 (08:07→10:42)
[2019-07-12] MEDS: PEPCID IV SCH ×3 (08:15→22:19)
[2019-07-12] MEDS ORDERED: VERSED ONE (08:46)
[2019-07-12] MEDS ORDERED: XYLOCAINE MPF 2% ONE ×2 (08:46→08:48)
[2019-07-12] MEDS ORDERED: DIPRIVAN 10 MG/ML IV ONE (08:47)
[2019-07-12] MEDS ORDERED: SUBLIMAZE ONE (08:47)
[2019-07-12] MEDS ORDERED: ZEMURON IV ONE (08:48)
[2019-07-12] MEDS ORDERED: VERSED IV NR (09:00)
[2019-07-12] MEDS ORDERED: LACTATED RINGERS 1,000 ML IV SCH ×2 (09:00→14:15)
--- NOTE | 2019-07-12 09:26 | Progress Note ---
Assessment and Plan chronic abdominal pain 9 years after gastric bypass. CT scan shows focal non- obstructing intussusception that may be the cause. taking for dx lap today with EGD Subjective Date of service: 07/12/19 Patient Reports: Positive: no new complaints, still having pain, tolerating liquids well, flatus Objective Vital Signs - 12hr 07/11/19 07/11/19 07/12/19 22:00 23:49 04:21 Temperature 98.0 F 97.2 F L Pulse Rate 68 73 Respiratory 18 18 Rate Respiratory 17 Rate [Left Upper Abdomen] Blood Pressure 92/55 125/80 O2 Sat by Pulse 95 98 Oximetry 07/12/19 07/12/19 07/12/19 05:47 06:17 07:35 Temperature 98.5 F Pulse Rate 68 Respiratory 17 17 18 Rate Respiratory Rate [Left Upper Abdomen] Blood Pressure 139/88 O2 Sat by Pulse 100 Oximetry 07/12/19 07/12/19 07:50 08:00 Temperature 98 F 98 F Pulse Rate 60 60 Respiratory 18 18 Rate Respiratory Rate [Left Upper Abdomen] Blood Pressure 131/84 131/84 O2 Sat by Pulse 98 98 Oximetry - General physical appearance well developed, well nourished, no distress - Respiratory normal expansion, normal respiratory effort - Abdomen soft, other (obese, tender to deep palpation more on left side) - Labs 07/11/19 05:45 07/10/19 05:12
[2019-07-12] MEDS ORDERED: XYLOCAINE 1% 20 mL ONE (09:35)
[2019-07-12] MEDS ORDERED: MARCAINE-EPI 0.5%-1:200,000 INFILTRATI ONE ×2 (09:35→10:07)
[2019-07-12] MEDS ORDERED: FLAGYL 500 MG/100 ML 500 MG/100 ML BAG IV NR (09:45)
[2019-07-12] MEDS ORDERED: ANCEF/STERILE WATER 2 GM/20 ML IV NR (09:45)
[2019-07-12] MEDS ORDERED: XYLOCAINE 1% 20 mL INFILTRATI ONE (10:08)
[2019-07-12] MEDS ORDERED: NACL 0.9% IR ONE (10:08)
[2019-07-12] MEDS ORDERED: DECADRON ONE (10:40)
[2019-07-12] MEDS ORDERED: ZOFRAN ONE (10:40)
[2019-07-12] MEDS ORDERED: BLOXIVERZ ONE (10:41)
[2019-07-12] MEDS ORDERED: ROBINUL ONE (10:41)
[2019-07-12] MEDS ORDERED: MORPHINE ONE (10:56)
--- NOTE | 2019-07-12 11:16 | Operative Report ---
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 DIAGNOSTIC LAPAROSCOPY WITH REDUCTION OF SMALL BOWEL INTUSSUSCEPTION AND SMALL BOWEL PEXY 2. EGD ANESTHESIA: GETA COMPLICATIONS: NONE IMMEDIATE EBL: <10ML FINDINGS: EASILY REDUCIBLE FOCAL INTUSSUSCEPTED SMALL BOWEL SEGMENT INTO THE JEJU-JEJUNOSTOMY, NO INTERNAL HERNIA DEFECTS, NO MARGINAL ULCER, POUCH ~40-50CC, ANASTAMOSIS 20-25MM INDICATION: PT PRESENTED TO THE EMERGENCY ROOM WITH ABDOMINAL PAIN THAT SHE SAYS HAS BEEN GOING ON FOR OVER 8 YEARS WHEN SHE HAD HER GASTRIC BYPASS. SHE HAD A CT SCAN THAT SHOWED A NON OBSTRUCTING SMALL BOWEL INTUSSUSCEPTION SEGMENT. SHE WAS BEING SCHEDULED FOR SURGERY WITH ANOTHER PRACTICE BUT DID NOT FOLLOW UP SINCE THE PAIN HAD IMPROVED. SHE WAS SCHEDULED AND CONSENTED FOR DIAGNOSTIC LAPAROSCOPY. DETAILS OF PROCEDURE: PT WAS BROUGHT INTO OR SUITE AND LAID IN SUPINE POSITION. BILATERAL LOWER EXTREMITY SCD WERE PLACED FOLLOWED BY SUCCESSFUL INDUCTION OF GENERAL ANESTHESIA VIA ENDOTRACHEAL INTUBATION. A BELLA WAS PLACED UNDER STERILE CONDITIONS AND HER ABDOMEN WAS PREPPED AND DRAPED IN STERILE FASHION WITH HER ARMS TUCKED AT HER SIDES. A TIME OUT WAS PERFORMED. USING A VERESS NEEDLE HER ABDOMEN WAS INSUFLATED TO A PRESSURE OF 15MMHG VIA A STAB INCISION IN THE LUQ. USING OPTIVIEW TECHNIQUE A 5MM TROCAR WAS PLACE JUST LEFT AND SUPERIOR TO THE UMBILICUS. THERE WAS NO INJURY NOTED TO ANY INTRA-ABDOMINAL STRUCTURES. THREE WORKING TROCARS WERE PLACED UNDER DIRECT VISUALIZATION. 5MM IN THE LUQ, RUQ, AND 12MM IN THE RIGHT MID ABDOMEN. THE GASTRIC BYPASS ANATOMY WAS EXAMINED AND THE CORRECT ORIENTATION OF THE LIMBS CONFIRMED. THERE WAS NOTED TO BE A SMALL <3CM SEGMENT OF SMALL BOWEL FROM THE [place] LIMB/COMMON CHANNEL INTUSSUSCEPTING INTO THE JEJU-JEJUNOSOTMY. IT WAS VERY EASY TO REDUCE WITH MINIMAL TRACTION. THE SMALL BOWEL WAS INTACT WITH NO SIGNS OF ISCHEMIA. THE BILIO-PANCREATIC LIMB WAS OBSERVED TO BE ABOUT 30CM. IT WAS DECIDED AT THIS TIME SINCE THE INTUSSUSCEPTION WAS NOT OBSTRUCTING, EASY TO REDUCE, ALL BOWEL VIABLE, AND BP LIMP A LITTLE ON THE SHORT SIDE, IT WAS BEST TO PEXY THE [place] LIMB TO THE SIDE OF THE ADJACENT J- J CONFLUENCE TO DETER FUTURE INTUSSUSCEPTION. THE ALTERNATIVE WOULD BE TO RESECT THE J-J CONFLUENCE AND REANASTAMOS ALL OF THE LIMBS TO RE-ESTABLISH CONTINUITY. AT THIS JUNCTURE IT WAS FELT REDUCTION AND PEXY OF THE AREA WAS ENOUGH, ACKNOWLEDGING THAT SHE MAY INTUSSUSCEPT AGAIN IN THE FUTURE WHETHER THE J-J WAS REVISED OR NOT. THE MESENTARY AT THE J-J AND [facility] WERE INSPECTED AND NO INTERNAL HERNIA WAS OBSERVED. THE 12MM TROCAR WAS CLOSED WITH A 0-VICRYL USING A JEAN CLAUDE-PA DEVICE AND THE ABDOMEN WAS DESUFLATED. AN EGD WAS PERFORMED THAT SHOWED NO PATHOLOGY SUCH MARGINAL ULCER. POUCH AND ANASTAMOSIS ARE DESCRIBED IN THE FINDINGS SECTION OF THIS NOTE. PT WAS AWOKEN, EXTUBATED AND TAKEN TO RECOVERY IN STABLE CONDITION. ALL COUNTS WERE CORRECT.
--- NOTE | 2019-07-12 11:30 | Progress Note ---
Assessment and Plan Dr. Turner eval & op report noted. spoke with her. Pt still in recovery Pt will be followed by Dr. Ugalde will follow prn Objective Vital Signs - 12hr 07/11/19 07/12/19 07/12/19 23:49 04:21 05:47 Temperature 98.0 F 97.2 F L Pulse Rate 68 73 Respiratory 18 18 17 Rate Blood Pressure 92/55 125/80 O2 Sat by Pulse 95 98 Oximetry 07/12/19 07/12/19 07/12/19 06:17 07:35 07:50 Temperature 98.5 F 98 F Pulse Rate 68 60 Respiratory 17 18 18 Rate Blood Pressure 139/88 131/84 O2 Sat by Pulse 100 98 Oximetry 07/12/19 07/12/19 07/12/19 08:00 10:51 10:56 Temperature 98 F 97.2 F L Pulse Rate 60 65 58 L Respiratory 18 17 16 Rate Blood Pressure 131/84 120/76 114/73 O2 Sat by Pulse 98 96 98 Oximetry 07/12/19 07/12/19 07/12/19 11:00 11:01 11:06 Temperature Pulse Rate 54 L 54 L Respiratory 16 16 16 Rate Blood Pressure 116/72 114/73 O2 Sat by Pulse 98 98 Oximetry 07/12/19 11:21 Temperature 97.4 F L Pulse Rate 56 L Respiratory 17 Rate Blood Pressure 114/74 O2 Sat by Pulse 100 Oximetry - Labs 07/11/19 05:45 07/10/19 05:12
--- NOTE | 2019-07-12 13:02 | Post Anesthesia Evaluation ---
- Post Anesthesia Evaluation Patient Participated: Yes Airway Patent: Yes Stable Respiratory Function: Yes Nausea/Vomiting: No Temp > 96.8F: Yes Pain Manageable: Yes Adequeate Hydration: Yes Anesthesia Complications: No
--- NOTE | 2019-07-12 13:28 | Progress Note ---
Assessment and Plan Assessment and plan: Abdominal pain due to intussusception - Dr. Ugalde evaluated and did diagnostic laparascopy with the reduction of small bowel intucesseption and EGD History of gastric bypass GERD - Continue Prilosec DVT prophylaxis - On Lovenox Disposition - Per surgery recommendations History Interval history: Patient was seen and evaluated this morning, patient did complaining abdominal cramp. Hospitalist Physical - Physical exam Narrative exam: Not in cardiopulmonary distress. The patient appeared well nourished and normally developed. Vital signs as documented. Head exam is unremarkable. No scleral icterus . Neck is without jugular venous distension, thyromegaly, or carotid bruits. Lungs are clear to auscultation. Cardiac exam reveals regular rate and Rhythm. Abdominal exam reveals normal bowel sounds, no masses, no organomegaly and no aortic enlargement. Extremities are nonedematous and both femoral and pedal pulses are normal. 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 No focal weakness. - Constitutional Vitals: Temp Pulse Resp BP Pulse Ox 97.4 F L 56 L 17 114/74 100 07/12/19 11:21 07/12/19 11:21 07/12/19 11:21 07/12/19 11:21 07/12/19 11:21 Results - Labs CBC & Chem 7: 07/11/19 05:45 07/10/19 05:12 Labs: Laboratory Last Values WBC 3.8 K/mm3 (4.5-11.0) L 07/11/19 05:45 RBC 3.81 M/mm3 (3.65-5.03) 07/11/19 05:45 Hgb 10.5 gm/dl (10.1-14.3) 07/11/19 05:45 Hct 32.1 % (30.3-42.9) 07/11/19 05:45 MCV 84 fl (79-97) 07/11/19 05:45 MCH 28 pg (28-32) 07/11/19 05:45 MCHC 33 % (30-34) 07/11/19 05:45 RDW 16.8 % (13.2-15.2) H 07/11/19 05:45 Plt Count 205 K/mm3 (140-440) 07/11/19 05:45 Lymph % (Auto) 45.2 % (13.4-35.0) H 07/11/19 05:45 [place] % (Auto) 9.6 % (0.0-7.3) H 07/11/19 05:45 Eos % (Auto) 1.7 % (0.0-4.3) 07/11/19 05:45 Baso % (Auto) 0.4 % (0.0-1.8) 07/11/19 05:45 Lymph # 1.7 K/mm3 (1.2-5.4) 07/11/19 05:45 [place] # 0.4 K/mm3 (0.0-0.8) 07/11/19 05:45 Eos # 0.1 K/mm3 (0.0-0.4) 07/11/19 05:45 Baso # 0.0 K/mm3 (0.0-0.1) 07/11/19 05:45 Seg Neutrophils % 43.1 % (40.0-70.0) 07/11/19 05:45 Seg Neutrophils # 1.6 K/mm3 (1.8-7.7) L 07/11/19 05:45 Sodium 142 mmol/L (137-145) 07/10/19 05:12 Potassium 3.5 mmol/L (3.6-5.0) L 07/10/19 05:12 Chloride 109.4 mmol/L (98-107) H 07/10/19 05:12 Carbon Dioxide 22 mmol/L (22-30) 07/10/19 05:12 14 mmol/L 07/10/19 05:12 BUN 8 mg/dL (7-17) 07/10/19 05:12 0.4 mg/dL (0.7-1.2) L 07/10/19 05:12 Estimated GFR > 60 ml/min 07/10/19 05:12 20 % 07/10/19 05:12 Glucose 82 mg/dL (65-100) 07/10/19 05:12 5.3 % (4-6) 07/10/19 05:12 Calcium 7.8 mg/dL (8.4-10.2) L 07/10/19 05:12 0.50 mg/dL (0.1-1.2) 07/10/19 05:12 AST 19 units/L (5-40) 07/10/19 05:12 ALT 21 units/L (7-56) 07/10/19 05:12 38 units/L (35-129) 07/10/19 05:12 5.8 g/dL (6.3-8.2) L 07/10/19 05:12 3.1 g/dL (3.9-5) L 07/10/19 05:12 1.1 % 07/10/19 05:12 Yellow (Yellow) 07/09/19 08:35 Clear (Clear) 07/09/19 08:35 6.0 (5.0-7.0) 07/09/19 08:35 Ur Specific [place] 1.017 (1.003-1.030) 07/09/19 08:35 <15 mg/dl mg/dL (Negative) 07/09/19 08:35 Neg mg/dL (Negative) 07/09/19 08:35 Neg mg/dL (Negative) 07/09/19 08:35 Neg (Negative) 07/09/19 08:35 Neg (Negative) 07/09/19 08:35 Neg (Negative) 07/09/19 08:35 2.0 mg/dL (<2.0) 07/09/19 08:35 Ur Leukocyte Esterase Tr (Negative) 07/09/19 08:35 1.0 /HPF (0.0-6.0) 07/09/19 08:35 3.0 /HPF (0.0-6.0) 07/09/19 08:35 U Epithel Cells (Auto) 1.0 /HPF (0-13.0) 07/09/19 08:35 Few /HPF 07/09/19 08:35 Urine HCG, Qual Negative (Negative) 07/09/19 10:19 Active Medications - Current Medications Current Medications: Generic Name Dose Route Start Last Admin Trade Name Freq PRN Reason Stop Dose Admin Acetaminophen 650 mg 07/09/19 21:34 07/11/19 06:51 Tylenol PO 650 mg Q4H PRN Administration Pain MILD(1-3)/Fever >100.5/MAYBERRY Docusate Sodium 100 mg 07/12/19 12:00 Colace PO BID MINDY Famotidine 20 mg 07/09/19 22:00 07/12/19 08:15 Pepcid IV 20 mg BID MINDY Administration Hydromorphone HCl 0.5 mg 07/12/19 08:06 07/12/19 11:00 Dilaudid IV 07/12/19 18:00 0.5 mg Q10MIN PRN Administration Pain , Severe (7-10) Sodium Chloride 1,000 mls @ 125 mls/hr 07/09/19 22:00 07/12/19 05:47 Nacl 0.9% 1000 Ml IV 125 mls/hr DIRECT MINDY Administration Lactated Ringer's 1,000 mls @ 100 mls/hr 07/12/19 09:00 07/12/19 08:10 Lactated Ringers IV 100 mls/hr DIRECT MINDY Administration Midazolam HCl 2 mg 07/12/19 09:00 07/12/19 09:15 Versed IV 07/12/19 23:59 2 mg PREOP NR Administration Morphine Sulfate 2 mg 07/09/19 23:14 07/12/19 05:47 Morphine IV 2 mg Q3H PRN Administration Pain, Moderate (4-6) Ondansetron HCl 4 mg 07/11/19 07:42 Zofran IV Q4H PRN Nausea And Vomiting Sodium Chloride 10 ml 07/09/19 22:00 07/12/19 05:05 Sodium Chloride Flush Syringe 10 Ml IV Not Given BID MINDY Sodium Chloride 10 ml 07/09/19 21:34 Sodium Chloride Flush Syringe 10 Ml IV PRN PRN LINE FLUSH Temazepam 15 mg 07/10/19 22:40 07/11/19 21:28 Restoril PO 15 mg QHS PRN Administration Sleep
[2019-07-12] MEDS ORDERED: MORPHINE IV PRN (14:15)
[2019-07-12] MEDS: TORADOL IV SCH (15:12)
[2019-07-12] MEDS: PERCOCET 5/325 PO PRN ×2 (17:33→22:10)
[2019-07-12] MEDS: COLACE PO SCH (22:10)
[2019-07-12] MEDS: RESTORIL PO PRN (22:10)
[2019-07-13] MEDS: PERCOCET 5/325 PO PRN ×2 (04:02→09:05)
[2019-07-13 05:20] LABS: BUN/Creatinine Ratio 8; Blood Urea Nitrogen 3 mg/dL (7-17); Calcium 8.8 mg/dL (8.4-10.2); Hemolysis Index 23
[2019-07-13 05:22] LABS: Basophils % (Auto) 0.2 % (0.0-1.8); Eosinophils % (Auto) 0.3 % (0.0-4.3); Hematocrit 33.1 % (30.3-42.9); Hemoglobin 10.9 gm/dl (10.1-14.3); Lymphocytes # (Auto) 1.6 K/mm3 (1.2-5.4); Lymphocytes % (Auto) 27.1 % (13.4-35.0); Mean Corpuscular HGB Conc 33 % (30-34); Mean Corpuscular Volume 85 fl (79-97); Monocytes # (Auto) 0.4 K/mm3 (0.0-0.8); Monocytes % (Auto) 7.3 % (0.0-7.3); Platelet Count 212 K/mm3 (140-440); Red Blood Count 3.88 M/mm3 (3.65-5.03); Red Cell Distribution Width 16.4 % (13.2-15.2)
[2019-07-13] MEDS ORDERED: MYLICON PO PRN (10:07)
[2019-07-13] MEDS: COLACE PO SCH (11:00)
[2019-07-13] MEDS: PEPCID IV SCH (11:03)
[2019-07-13] MEDS: SODIUM CHLORIDE FLUSH SYRINGE 10 ML IV SCH (11:04)
[2019-07-13] MEDS: TORADOL IV SCH ×4 (11:05→11:06)
[2019-07-13 11:41] VITALS: BP 124/76
--- NOTE | 2019-07-13 11:47 | Progress Note ---
Assessment and Plan POd# 1 s/p dx lap with reduction and pexy of small bowel intussusception. stable, afebrile. left sided abdominal pain prior surgery resolved. ok to discharge and followup with me in two weeks. [phone] Subjective Date of service: 07/13/19 Patient Reports: Positive: no new complaints (no acute events overnight), feels better, pain is less Objective Vital Signs - 12hr 07/13/19 07/13/19 07/13/19 00:00 00:23 04:02 Temperature 98.0 F Pulse Rate 61 Respiratory 18 18 20 Rate Blood Pressure 106/67 O2 Sat by Pulse 98 Oximetry 07/13/19 07/13/19 07/13/19 04:44 07:30 11:14 Temperature 98.4 F 97.6 F 97.7 F Pulse Rate 84 69 69 Respiratory 18 20 20 Rate Blood Pressure 110/70 111/53 124/76 O2 Sat by Pulse 97 97 100 Oximetry - General physical appearance well developed, well nourished - Respiratory normal expansion, normal respiratory effort - Abdomen soft, other (appropriately tender to palpation, incisions c/d/i) - Labs 07/13/19 04:06 07/13/19 04:06 Diabetes panel 07/13/19 Range/Units 04:06 Sodium 139 (137-145) mmol/L Potassium 3.9 (3.6-5.0) mmol/L Chloride 105.4 (98-107) mmol/L Carbon Dioxide 23 (22-30) mmol/L BUN 3 L (7-17) mg/dL Creatinine 0.4 L (0.7-1.2) mg/dL Glucose 102 H (65-100) mg/dL Calcium 8.8 (8.4-10.2) mg/dL Calcium panel 07/13/19 Range/Units 04:06 Calcium 8.8 (8.4-10.2) mg/dL Pituitary panel 07/13/19 Range/Units 04:06 Sodium 139 (137-145) mmol/L Potassium 3.9 (3.6-5.0) mmol/L Chloride 105.4 (98-107) mmol/L Carbon Dioxide 23 (22-30) mmol/L BUN 3 L (7-17) mg/dL Creatinine 0.4 L (0.7-1.2) mg/dL Glucose 102 H (65-100) mg/dL Calcium 8.8 (8.4-10.2) mg/dL Adrenal panel 07/13/19 Range/Units 04:06 Sodium 139 (137-145) mmol/L Potassium 3.9 (3.6-5.0) mmol/L Chloride 105.4 (98-107) mmol/L Carbon Dioxide 23 (22-30) mmol/L BUN 3 L (7-17) mg/dL Creatinine 0.4 L (0.7-1.2) mg/dL Glucose 102 H (65-100) mg/dL Calcium 8.8 (8.4-10.2) mg/dL
--- NOTE | 2019-07-13 13:43 | Discharge Summary ---
Providers - Providers Date of Admission: 07/09/19 14:16 Attending physician: DANIELLE HILARIO MD Primary care physician: BRIANNA ARTHUR Hospitalization Reason for admission: abdominal pain, small bowel intuccesseption Condition: Stable Hospital course: patient had a history of gastric bypass and patient has chronic abdominal pain and pain is getting progressively worse. General surgery was consulted and after extensive discussion diagnostic laparascopy was done and small bowel intucesseption was reduced and pain is getting better and discharged home in a stable condition. Disposition: DC-01 TO HOME OR SELFCARE Time spent for discharge: 32 minutes - Discharge Diagnoses (1) Small bowel intussusception Status: Acute Core Measure Documentation - Palliative Care Palliative Care/ Comfort Measures: Not Applicable - Core Measures Any of the following diagnoses?: none Exam - Physical Exam Narrative exam: Not in cardiopulmonary distress. The patient appeared well nourished and normally developed. Vital signs as documented. Head exam is unremarkable. No scleral icterus . Neck is without jugular venous distension, thyromegaly, or carotid bruits. Lungs are clear to auscultation. Cardiac exam reveals regular rate and Rhythm. Abdominal exam reveals normal bowel sounds, no masses, no organomegaly and no aortic enlargement. Extremities are nonedematous and both femoral and pedal pulses are normal. 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 No focal weakness. - Constitutional Vitals: Temp Pulse Resp BP Pulse Ox 97.7 F 69 20 124/76 100 07/13/19 11:14 07/13/19 11:14 07/13/19 11:14 07/13/19 11:14 07/13/19 11:14 Plan Activity: no restrictions Weight Bearing Status: Full Weight Bearing Diet: regular Follow up with: BRIANNA ARTHUR MD [Primary Care Provider] - 7 Days SHAQ MCKENZIE MD [Staff Physician] - 14 Days Prescriptions: oxyCODONE /ACETAMINOPHEN [Percocet 5/325] 2 tab PO Q4HR PRN #30 tab PRN Reason: Pain , Severe (7-10)
== END 2019-07-13 15:20 | disposition home or self-care (01) | DRG 331 ==
LOC: ED 07:59 → 3B-SURG 14:16
PROVIDERS: ADMIT Internal Medicine; ATTEND Internal Medicine
PROC: 0DS84ZZ Reposition Small Intestine, Percutaneous Endoscopic Approach (ICD-10-PCS; principal; 2019-07-12)
DX: K56.1 Intussusception (principal); K21.9 Gastro-esophageal reflux disease without esophagitis; Z79.899 Other long term (current) drug therapy; Z98.84 Bariatric surgery status; Z82.49 Family history of ischemic heart disease and other diseases of the circulatory system; Z90.6 Acquired absence of other parts of urinary tract
CPT/HCPCS: 36415; 74177; 74250; 80048; 80053; 81001; 81025; 83036; 85025; 96361; 96374; 96375; 96376; G0378; J1100; J1170; J1200; J1885; J2250; J2270; J2405; J2704; J2710; J2765; J3010; J7030; J7120; Q9967

== ENCOUNTER 2020-02-02 08:13 | Emergency (ER) | payer BC ==
[2020-02-02 08:21] VITALS: BP 107/71
[2020-02-02 09:30] LABS: BUN/Creatinine Ratio 18; Blood Urea Nitrogen 9 mg/dL (7-17); Calcium 8.3 mg/dL (8.4-10.2); Hemolysis Index 2
--- NOTE | 2020-02-02 09:53 | XRay Report ---
CHEST 2 VIEWS INDICATION / CLINICAL INFORMATION: Chest pain since Monday. COMPARISON: 11/04/16. FINDINGS: SUPPORT DEVICES: None. HEART / MEDIASTINUM: The heart size and pulmonary vasculature are normal. The aorta is normal in brando corinna. LUNGS / PLEURA: No significant pulmonary or pleural abnormality. No pneumothorax. ADDITIONAL FINDINGS: No significant additional findings. IMPRESSION: No acute abnormality or significant change. Signer Name: Rudolph Quiñones MD Signed: 02/02/2020 9:48 AM Workstation Name: [id number]
[2020-02-02 10:07] LABS: Basophils % (Auto) 0.4 % (0.0-1.8); Eosinophils % (Auto) 0.1 % (0.0-4.3); Hematocrit 37.6 % (30.3-42.9); Hemoglobin 12.4 gm/dl (10.1-14.3); Lymphocytes # (Auto) 1.5 K/mm3 (1.2-5.4); Lymphocytes % (Auto) 41.5 % (13.4-35.0); Mean Corpuscular HGB Conc 33 % (30-34); Mean Corpuscular Volume 89 fl (79-97); Monocytes # (Auto) 0.2 K/mm3 (0.0-0.8); Monocytes % (Auto) 6.3 % (0.0-7.3); Platelet Count 194 K/mm3 (140-440); Red Blood Count 4.22 M/mm3 (3.65-5.03); Red Cell Distribution Width 14.5 % (13.2-15.2)
--- NOTE | 2020-02-02 10:51 | Emergency Department Report ---
HPI - General Chief Complaint: Chest Pain Time Seen by Provider: 02/02/20 10:22 - HPI HPI: Room 35 The patient is a 49-year-old female present with a chief complaint of "sick." The patient states for the past 2 days she has been sick which includes body aches, chills, subjective fever and cough. Patient states her cough is been nonproductive. Patient admits to the onset of rhinorrhea today. Patient states her chest hurts when she coughs. Patient has no known sick contacts or recent travel. ED Past Medical Hx - Past Medical History Previous Medical History?: Yes Hx GERD: Yes Additional medical history: reflux, indigestion - Surgical History Past Surgical History?: Yes Additional Surgical History: LAP BAND AND REMOVAL. Gastric Bypass - Family History Family history: no significant - Social History Smoking Status: Never Smoker Substance Use Type: None (Denies illicit drug use), Alcohol (Occasional) - Medications Home Medications: Home Medications Medication Instructions Recorded Confirmed Last Taken Type Dicyclomine [Bentyl] 20 mg PO QID PRN #20 tablet 06/27/14 07/09/19 2 Years Ago Rx ~07/09/17 Esomeprazole Magnesium [Nexium] 06/27/14 06/27/14 1 Year Ago History ~07/09/18 Omeprazole [Prilosec] 40 mg PO BID #40 capsule. 06/27/14 07/09/19 Unknown Rx Cyclobenzaprine [Flexeril 10mg] 10 mg PO TID PRN #20 tablet 04/08/15 07/09/19 2 Years Ago Rx ~07/09/17 HYDROcodone/ACETAMINOPHEN [[place] 1 each PO TID #14 tablet 04/08/15 07/09/19 05/27/19 Rx 7.5-325 mg TAB] Ibuprofen [Motrin] 800 mg PO Q8H PRN #30 tablet 04/08/15 07/09/19 Unknown Rx traMADoL [Ultram] 50 mg PO Q6HR PRN #10 tablet 11/04/16 07/09/19 Unknown Rx oxyCODONE /ACETAMINOPHEN [Percocet 2 tab PO Q4HR PRN #30 tab 07/13/19 Unknown Rx 5/325] Albuterol INH(or & Nicu Only) 2 puff IH QID PRN #8.5 gram 02/02/20 Unknown Rx [ProAir HFA Inhaler] Benzonatate [Tessalon Perles] 100 mg PO Q8HR #30 capsule 02/02/20 Unknown Rx Ciprofloxacin HCl [Ciprofloxacin 500 mg PO Q12HR #14 tab 02/02/20 Unknown Rx TAB] HYDROcodone/APAP 5-325 [[place] 1 - 2 each PO Q6HR PRN #10 tablet 02/02/20 Unknown Rx 5/325] Ibuprofen [Motrin 800 MG tab] 800 mg PO Q8HR PRN #20 tablet 02/02/20 Unknown Rx ED Review of Systems ROS: Stated complaint: CHEST PAIN/SOB/FEVER/COLD Other details as noted in HPI Constitutional: fever (Subjective) Eyes: denies: eye pain ENT: other (Rhinorrhea) Respiratory: cough, shortness of breath Endocrine: no symptoms reported Genitourinary: denies: dysuria Musculoskeletal: myalgia Neurological: denies: headache Physical Exam - Physical Exam Vital Signs: Vital Signs 02/02/20 08:14 Temperature 98.0 F Pulse Rate 99 H Respiratory 18 Rate Blood Pressure 107/71 O2 Sat by Pulse 98 Oximetry Physical Exam: GENERAL: The patient is well-developed well-nourished female lying on stretcher not appearing to be in acute distress. [] HEENT: Normocephalic. Atraumatic. Extraocular motions are intact. Patient has moist mucous membranes. NECK: Supple. No meningitic signs are noted. Trachea midline CHEST/LUNGS: Clear to auscultation. There is no respiratory distress noted. HEART/CARDIOVASCULAR: Regular. There is no tachycardia. There is no gallop rub or murmur. ABDOMEN: Abdomen is soft, nontender. Patient has normal bowel sounds. There is no abdominal distention. SKIN: There is no rash. There is no edema. There is no diaphoresis. NEURO: The patient is awake, alert, and oriented. The patient is cooperative. The patient has normal speech MUSCULOSKELETAL: There is no evidence of acute injury. ED Course Vital Signs 02/02/20 08:14 Temperature 98.0 F Pulse Rate 99 H Respiratory 18 Rate Blood Pressure 107/71 O2 Sat by Pulse 98 Oximetry ED Medical Decision Making - Lab Data Result diagrams: 02/02/20 08:29 02/02/20 08:29 Laboratory Tests 03/08/20 03/08/20 03/08/20 08:29 08:29 08:29 WBC 3.7 L RBC 4.22 Hgb 12.4 Hct 37.6 MCV 89 MCH 30 MCHC 33 RDW 14.5 Plt Count 194 Lymph % (Auto) 41.5 H [place] % (Auto) 6.3 Eos % (Auto) 0.1 Baso % (Auto) 0.4 Lymph # 1.5 [place] # 0.2 Eos # 0.0 Baso # 0.0 Seg Neutrophils % 51.7 Seg Neutrophils # 1.9 Sodium 137 Potassium 3.4 L Chloride 101.1 Carbon Dioxide 21 L Anion Gap 18 BUN 9 Creatinine 0.5 L Estimated GFR > 60 BUN/Creatinine Ratio 18 Glucose 121 H Calcium 8.3 L Troponin T < 0.010 HCG, Qual Negative Influenza A (Rapid) Influenza B (Rapid) 02/02/20 02/02/20 10:46 11:48 WBC RBC Hgb Hct MCV MCH MCHC RDW Plt Count Lymph % (Auto) [place] % (Auto) Eos % (Auto) Baso % (Auto) Lymph # [place] # Eos # Baso # Seg Neutrophils % Seg Neutrophils # Sodium Potassium Chloride Carbon Dioxide Anion Gap BUN Creatinine Estimated GFR BUN/Creatinine Ratio Glucose Calcium Troponin T < 0.010 HCG, Qual Influenza A (Rapid) Negative Influenza B (Rapid) Negative - EKG Data -: EKG Interpreted by Me EKG shows normal: sinus rhythm Rate: normal - EKG Data When compared to previous EKG there are: previous EKG unavailable Interpretation: other (No ischemic changes seen) - Radiology Data Radiology results: report reviewed (Chest x-ray), image reviewed (Chest x-ray) interpreted by me: Chest x-ray-no focal infiltrates, no pneumothorax Findings [facility] [address] [place] [address] XRay Report Signed Patient: EZEQUIEL COREY MR#: [id number] : 1970 Acct:[id number] Age/Sex: 49 / F ADM Date: 02/02/20 Loc: ED Attending Dr: Ordering Physician: ED MD BRIANNA Date of Service: 02/02/20 Procedure(s): XR chest 1V ap Accession Number(s): [id number] cc: ED MD BRIANNA Fluoro Time In Minutes: CHEST 2 VIEWS INDICATION / CLINICAL INFORMATION: Chest pain since Monday. COMPARISON: 11/04/16. FINDINGS: SUPPORT DEVICES: None. HEART / MEDIASTINUM: The heart size and pulmonary vasculature are normal. The aorta is normal in caliber. LUNGS / PLEURA: No significant pulmonary or pleural abnormality. No pneumothorax. ADDITIONAL FINDINGS: No significant additional findings. IMPRESSION: No acute abnormality or significant change. Signer Name: Rudolph Quiñones MD Signed: 02/02/2020 9:48 AM Workstation Name: [id number] Transcribed By: RT Dictated By: Rudolph Quiñones MD Electronically Authenticated By: Rudolph Quiñones MD Signed Date/Time: 02/02/20947 DD/ 5 TD/TT: - Differential Diagnosis Influenza, bronchitis, pneumonia, ACS Critical care attestation.: If time is entered above; I have spent that time in minutes in the direct care of this critically ill patient, excluding procedure time. ED Disposition Clinical Impression: Acute bronchitis Disposition: DC-01 TO HOME OR SELFCARE Is pt being admited?: No Does the pt Need Aspirin: No Condition: Stable Instructions: Acute Bronchitis (ED) Additional Instructions: Return to the emergency department should you develop worsening symptoms, inability to tolerate food or liquids, high fever or any other concerns Prescriptions: Ciprofloxacin HCl [Ciprofloxacin TAB] 500 mg PO Q12HR #14 tab Ibuprofen [Motrin 800 MG tab] 800 mg PO Q8HR PRN #20 tablet PRN Reason: Pain, Moderate (4-6) HYDROcodone/APAP 5-325 [[place] 5/325] 1 - 2 each PO Q6HR PRN #10 tablet PRN Reason: Pain Albuterol INH(or & Nicu Only) [ProAir HFA Inhaler] 2 puff IH QID PRN #8.5 gram PRN Reason: Shortness Of Breath Benzonatate [Tessalon Perles] 100 mg PO Q8HR #30 capsule Referrals: PRIMARY CAREMD [Primary Care Provider] - 3-5 Days [facility] [Outside] - 3-5 Days Time of Disposition: 13:02
[2020-02-02] MEDS ORDERED: IPRATROPIUM 0.02% NEBU 2.5 ML IH ONE (11:35)
[2020-02-02] MEDS ORDERED: ALBUTEROL 2.5 MG/3 ML NEBU IH ONE (11:35)
== END 2020-02-02 13:18 | disposition home or self-care (01) ==
LOC: ED 08:13
DX: J20.9 Acute bronchitis, unspecified (principal); K21.9 Gastro-esophageal reflux disease without esophagitis; Z79.899 Other long term (current) drug therapy; Z98.890 Other specified postprocedural states
CPT/HCPCS: 36415; 71045; 71046; 80048; 84484; 84703; 85025; 87400; 93005; 93010

== ENCOUNTER 2020-09-05 08:21 | Emergency (ER) | payer BC ==
[2020-09-05 09:01] VITALS: BP 122/79
[2020-09-05] MEDS ORDERED: CYCLOBENZAPRINE 10 MG TAB PO ONE (10:51)
[2020-09-05] MEDS ORDERED: IBUPROFEN 600 MG TAB PO ONE (10:51)
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
--- NOTE | 2020-09-05 11:29 | XRay Report ---
Cervical spine 3 views INDICATION: Neck pain following injury IMPRESSION: Prominent anterior osteophyte involving C4-C5 the upper aspect of the odontoid is not wel l identified on this exam. No definite acute fracture or subluxation identified. Signer Name: Josr Hernandez MD Signed: 09/05/2020 11:24 AM Workstation Name: [id number]
--- NOTE | 2020-09-05 11:29 | XRay Report ---
Lumbar spine 3 views INDICATION: Low back pain IMPRESSION: No fracture or subluxation of the lumbar spine is identified. Mild L5-S1 facet arthropath y present. Signer Name: Josr Hernandez MD Signed: 09/05/2020 11:24 AM Workstation Name: [id number]
== END 2020-09-05 12:03 | disposition home or self-care (01) ==
LOC: ED 08:21
DX: S39.012A Strain of muscle, fascia and tendon of lower back, initial encounter (principal); S16.1XXA Strain of muscle, fascia and tendon at neck level, initial encounter; K21.9 Gastro-esophageal reflux disease without esophagitis; Z98.890 Other specified postprocedural states; Z79.1 Long term (current) use of non-steroidal anti-inflammatories (NSAID); Z79.2 Long term (current) use of antibiotics; Z79.899 Other long term (current) drug therapy; V49.49XA Driver injured in collision with other motor vehicles in traffic accident, initial encounter; Y93.89 Activity, other specified; Y92.410 Unspecified street and highway as the place of occurrence of the external cause; Y99.8 Other external cause status
CPT/HCPCS: 72040; 72100

== ENCOUNTER 2020-10-29 12:07 | Outpatient (CLI) | payer BC ==
[2020-10-29 12:51] LABS: Basophils % (Auto) 0.4 % (0.0-1.8); Eosinophils % (Auto) 0.9 % (0.0-4.3); Hematocrit 35.9 % (30.3-42.9); Lymphocytes # (Auto) 1.7 K/mm3 (1.2-5.4); Lymphocytes % (Auto) 44.7 % (13.4-35.0); Mean Corpuscular HGB Conc 33 % (30-34); Mean Corpuscular Volume 88 fl (79-97); Monocytes # (Auto) 0.3 K/mm3 (0.0-0.8); Monocytes % (Auto) 7.3 % (0.0-7.3); Platelet Count 240 K/mm3 (140-440); Red Blood Count 4.07 M/mm3 (3.65-5.03); Red Cell Distribution Width 14.3 % (13.2-15.2)
[2020-10-29 13:14] LABS: Alanine Aminotransferase 35 units/L (7-56); Albumin 3.6 g/dL (3.9-5); Blood Urea Nitrogen 17 mg/dL (7-17); Calcium 9.1 mg/dL (8.4-10.2); Hemolysis Index 8; Iron 121 ug/dL (37-170); Total Iron Binding Capacity 400 mcg/dL (250-450)
[2020-10-29 13:21] LABS: BUN/Creatinine Ratio 34
== END 2020-10-29 12:08 | disposition home or self-care (01) ==
LOC: LAB 12:07
PROVIDERS: ATTEND Surgery
DX: Z00.00 Encounter for general adult medical examination without abnormal findings (principal); E11.9 Type 2 diabetes mellitus without complications; D50.9 Iron deficiency anemia, unspecified; E61.9 Deficiency of nutrient element, unspecified; K30 Functional dyspepsia
CPT/HCPCS: 36415; 80053; 82306; 82607; 83550; 83970; 84425; 85025

== ENCOUNTER 2020-11-12 11:41 | Outpatient (CLI) | payer BC ==
[2020-11-12 12:51] LABS: Blood Urea Nitrogen 14 mg/dL (7-17)
--- NOTE | 2020-11-12 14:39 | Cat Scan Report ---
CT ABDOMEN AND PELVIS WITH CONTRAST INDICATION / CLINICAL INFORMATION: MAIN. Abdominal pain TECHNIQUE: Axial CT images were obtained through the abdomen and pelvis after IV contrast. All CT scans at this location are performed using CT dose reduction for ALARA by means of automated exposure control. COMPARISON: 07/09/2019 FINDINGS: LOWER CHEST: No significant abnormality. LIVER: No significant abnormality. GALLBLADDER: No significant abnormality. BILE DUCTS: No significant abnormality. PANCREAS: No significant abnormality. SPLEEN: No significant abnormality. ADRENALS: No significant abnormality. RIGHT KIDNEY / URETER: No significant abnormality. LEFT KIDNEY / URETER: No significant abnormality. STOMACH / SMALL BOWEL: Stable postsurgical changes to the stomach and small bowel in the left upper q uadrant abdomen. Persistent small bowel intussusception again noted in the left upper quadrant of the abdomen has not significantly changed since prior exam. No mechanical bowel obstruction. COLON: Persistent colonic diverticulosis. APPENDIX: No significant abnormality. PERITONEUM: No free fluid. No free air. No fluid collection. LYMPH NODES: No significant adenopathy. AORTA / ARTERIES: No significant abnormality. IVC / VEINS: No significant abnormality. URINARY BLADDER: No significant abnormality. REPRODUCTIVE ORGANS: Persistently enlarged and heterogeneous uterus with numerous fibroids has not si gnificant changed since prior exam. There is been interval decrease in size the previously noted righ t adnexal cyst now measuring 2.5 cm (previously 5.3 cm) interval development of a right corpus luteal cyst measuring 1.7 cm. ADDITIONAL FINDINGS: Innumerable soft tissue density nodules in the bilateral gluteal region extendin g into the gluteal clefts have not significantly changed since prior exam. There is no evidence of ca lcifications. Correlation for history of gluteal implants/injections is recommended. SKELETAL SYSTEM: No significant abnormality. IMPRESSION: 1. Postsurgical changes of the stomach and small bowel with a persistent nonobstructive small bowel i ntussusception are stable since prior exam dated 07/09/2019. 2. Enlarged and globular uterus with multiple uterine fibroids similar to prior exam. 3. Interval decrease in size the previous noted right adnexal cyst now measuring 2.5 cm. 4. Numerous soft tissue nodules in the bilateral gluteal region have not significant changed since pr ior exam. Correlate for clinical history of gluteal injections/implants. Signer Name: Arian Dixon MD Signed: 11/12/2020 2:34 PM Workstation Name: [id number]
== END 2020-11-12 11:42 | disposition home or self-care (01) ==
LOC: CT 11:41
PROVIDERS: ATTEND Surgery
DX: N85.2 Hypertrophy of uterus (principal); K57.30 Diverticulosis of large intestine without perforation or abscess without bleeding; D25.9 Leiomyoma of uterus, unspecified; N83.11 Corpus luteum cyst of right ovary; Z98.890 Other specified postprocedural states
CPT/HCPCS: 36415; 74177; 82565; 84520; Q9967

== ENCOUNTER 2021-08-23 10:27 | Emergency (ER) | payer BC, OTHER ==
[2021-08-23 10:46] VITALS: BP 123/76
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
== END 2021-08-23 12:50 | disposition home or self-care (01) ==
LOC: ED 10:27
DX: S16.1XXA Strain of muscle, fascia and tendon at neck level, initial encounter (principal); S39.012A Strain of muscle, fascia and tendon of lower back, initial encounter; K21.9 Gastro-esophageal reflux disease without esophagitis; Z98.890 Other specified postprocedural states; V43.42XA Person boarding or alighting a car injured in collision with other type car, initial encounter; Y93.89 Activity, other specified; Y92.410 Unspecified street and highway as the place of occurrence of the external cause; Y99.8 Other external cause status
CPT/HCPCS: 72040; 72100; 99283